=== PATIENT | female | born 1945 | race Caucasian/White ===

== ENCOUNTER 2019-05-10 21:13 | Emergency (ER) | payer MEDICARE ==
[~2019-05-10] VITALS: Ht 152.4 cm; Wt 49.9 kg
[2019-05-10] MEDS ORDERED: [UNRECOGNIZED DRUG - REMARK] (21:22)
[2019-05-10] MEDS ORDERED: METH10TA4 PO (21:23)
[2019-05-10] MEDS ORDERED: FLUV100C2 PO (21:23)
[2019-05-10] MEDS ORDERED: BUPR150T4 PO (21:23)
[2019-05-10] MEDS ORDERED: GABA-536 PO (21:23)
[2019-05-10] MEDS ORDERED: [UNRECOGNIZED DRUG - REMARK] (21:23)
[2019-05-10] MEDS ORDERED: SULF500T8 PO (21:23)
--- NOTE | 2019-05-10 21:25 | NUR ---
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 HAS LAC ON RIGHT SIDE OF HEAD WITH RIGHT ARM PAIN. PATIENT IN ROOM INTERACTING WELL WITH FAMILY MEMBER. PATIENT DENIES LOC. NO DISTRESS NOTED
[2019-05-10] MEDS ORDERED: LIDOCAINE 1%-EPI 1:100,000 20 ML VIAL TP ONE (21:45)
[2019-05-10] MEDS ORDERED: SODIUM BICARBONATE 4.2 % (NEUT) 5 ML VIAL TP ONE (21:45)
[2019-05-10] MEDS ORDERED: NEOMY/BACITRA/POLYMYXIN B OINT UD PACKET TP ONE ×2 (21:45→21:48)
[2019-05-10] MEDS ORDERED: TDAP DIPH,PERTUSS,TET VAC/PF 0.5 ML DISP.SYRIN IM ONE ×2 (21:45→21:49)
[2019-05-10 22:17] VITALS: BP 110/77
--- NOTE | 2019-05-10 22:17 | NUR ---
Patient discharged to home in stable conditon WITH FAMILY MEMBER TAKING PATIENT HOME. Written and verbal after care instructions given. Patient/FAMILY verbalizes understanding of instructions. WALKED OUT OF ER WITH NO DISTRESS NOTED
== END 2019-05-10 22:18 | disposition home or self-care (01) ==
LOC: ER 21:13
DX: S01.01XA Laceration without foreign body of scalp, initial encounter (principal); S63.501A Unspecified sprain of right wrist, initial encounter; Z88.0 Allergy status to penicillin; Z88.1 Allergy status to other antibiotic agents; Z79.899 Other long term (current) drug therapy; W18.09XA Striking against other object with subsequent fall, initial encounter; Y93.89 Activity, other specified; Y92.89 Other specified places as the place of occurrence of the external cause; Y99.8 Other external cause status
CPT/HCPCS: 12002; 29125; 70450; 73110; 90471; 90715; 99284; J3490 ×2; A4663